=== PATIENT | female | born 1985 | race Caucasian/White ===

== ENCOUNTER 2017-05-03 09:57 | Emergency (ER) | payer BC, OTHER ==
[2017-05-03 10:37] LABS: #Lymphocytes 1.7 thou/uL (1.20-3.40); #Monocytes 0.3 thou/uL (0.11-0.59); #Neutrophils 6.3 thou/uL (1.40-6.50); %Basophils 0.4 % (0.0-1.0); %Eosinophils 0.4 % (0.0-10.0); %Lymphocytes 20.2 % (21.0-51.0); %Monocytes 3.7 % (0.0-10.0); %Neutrophils 75.2 % (42.0-75.0); Hemoglobin 13.2 g/dL (12.0-16.0); Mean Corpuscular HGB CONC 32.7 g/dL (32.0-36.0); Mean Corpuscular Hemoglobin 27.6 pg (27.0-31.0); Mean Corpuscular Volume 84.4 fl (81.0-99.0); Mean Platelet Volume 9.6 fL (7.4-10.4); Platelet Count 164 thou/uL (130-400); RBC Distribution Width 12.5 % (11.5-14.5); Red Blood Cell (RBC) Count 4.79 mill/uL (4.20-5.40); White Blood Cell (WBC) Count 8.3 thou/uL (4.8-10.8)
[2017-05-03 10:39] LABS: BHCG - Serum Negative (NEGATIVE); Pregs Control Background? CLEAR/WHITE (CLR/WHITE); Pregs Control Bar Appear? YES (CONTROL BAR)
--- NOTE | 2017-05-03 10:42 | RAD ---
UPRIGHT PORTABLE CHEST ONE VIEW: History: 31-year-old female with history of chest pain and anxiety for two weeks. Comparison: 10-22-13 FINDINGS: Monitor leads overlie the chest. Dextroscoliosis of the thoracic spine. Heart size is normal. The john gs are clear. IMPRESSION: No acute intrathoracic disease. POS: [facility]
[2017-05-03 10:58] LABS: CKMB 0.6 ng/mL (0-6.6); Troponin I Less than 0.010 ng/mL (< 0.028)
[2017-05-03 11:01] LABS: ALT (SGPT) 11 U/L (8-55); AST (SGOT) 15 U/L (5-34); Albumin 4.7 g/dL (3.5-5.0); Alkaline Phosphatase 61 U/L (40-150); Anion Gap 14 mmol/L (10-20); BUN (Urea Nitrogen) 14 mg/dL (7.0-18.7); Bilirubin, Total 1.1 mg/dL (0.2-1.2); CK (CPK) 57 U/L (29-168); Calc. Creatinine Clearance 0 mL/min (70-130); Calcium 9.5 mg/dL (7.8-10.44); Carbon Dioxide 19 mmol/L (22-29); Chloride 110 mmol/L (98-107); Estimated GFR-MDRD 85; Globulin 2.7 g/dL (2.4-3.5); Glucose 85 mg/dL (70-105); Lipase 35 U/L (8-78); Potassium 3.5 mmol/L (3.5-5.1); Protein, Total 7.4 g/dL (6.0-8.3); Sodium 139 mmol/L (136-145)
[2017-05-03] MEDS ORDERED: Nitroglycerin 2% Ointment 1 INCH/1 GM Packet ONE (11:19)
[2017-05-03] MEDS ORDERED: Nitroglycerin 0.4 MG TAB (25 Tab Bottle) ONE (11:19)
[2017-05-03] MEDS ORDERED: Acetaminophen 500 MG TAB ONE (11:33)
[2017-05-03] MEDS ORDERED: Ketorolac Tromethamine 30 MG/ML VIAL ONE (12:51)
[2017-05-03 13:52] LABS: CKMB 0.5 ng/mL (0-6.6); Troponin I Less than 0.010 ng/mL (< 0.028)
--- NOTE | 2017-06-16 10:42 | EKG ---
Test Reason : Blood Pressure : / mmHG Vent. Rate : 103 BPM Atrial Rate : 103 BPM P-R Int : 146 ms QRS Dur : 084 ms QT Int : 360 ms P-R-T Axes : 076 093 068 degrees QTc Int : 471 ms Sinus tachycardia Rightward axis Borderline ECG Confirmed by NATALYA ENRIQUEZ DO (61), business editor SIMRAN PHAM ([id number]) on 06/16/2017 10:41:41 AM Referred By: Confirmed By:NATALYA ENRIQUEZ DO
--- NOTE | 2017-06-16 10:43 | EKG ---
Test Reason : Blood Pressure : / mmHG Vent. Rate : 088 BPM Atrial Rate : 088 BPM P-R Int : 126 ms QRS Dur : 082 ms QT Int : 362 ms P-R-T Axes : 081 090 073 degrees QTc Int : 438 ms Normal sinus rhythm Rightward axis Borderline ECG No changes Confirmed by NATALYA ENRIQUEZ DO (61), senior stereo compiler team lead SIMRAN PHAM ([id number]) on 06/16/2017 10:43:21 AM Referred By: Confirmed By:NATALYA ENRIQUEZ DO
== END 2017-05-03 14:45 | disposition home or self-care (01) ==
LOC: ERS 09:57
DX: R07.89 Other chest pain (principal); G43.909 Migraine, unspecified, not intractable, without status migrainosus; Z79.899 Other long term (current) drug therapy
CPT/HCPCS: 36415; 71045; 80053; 82553; 83690; 83880; 84484; 84703; 85025; 93005; 96374; J1885

== ENCOUNTER 2018-03-05 10:00 | Outpatient (CLI) | payer BC ==
--- NOTE | 2018-03-05 16:04 | ULT ---
LIMITED RIGHT BREAST ULTRASOUND: 03/05/2018 PROVIDED CLINICAL HISTORY: Followup. COMPARISON: 10/27/2016 TECHNIQUE: Limited sonographic interrogation of the right breast, in the 6 o'clock position, was performed. FINDINGS: There is an oval, circumscribed, hypoechoic mass with smooth margins and no shadowing again seen at t he 6 o'clock position of the right breast, not significantly changed with respect to the prior study. 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 IMPRESSION: BI-RADS category 3-Probably benign findings. One year sonographic followup recommended. POS: OFF
== END 2018-03-05 10:01 | disposition home or self-care (01) ==
LOC: BICMAMMO 10:00
PROVIDERS: ATTEND Obstetrics & Gynecology
DX: N63.10 Unspecified lump in the right breast, unspecified quadrant (principal); Z98.82 Breast implant status
CPT/HCPCS: 77066; G0279

== ENCOUNTER 2019-02-14 17:42 | Outpatient (CLI) | payer BC ==
--- NOTE | 2019-02-14 19:49 | CT ---
EXAM: Abdomen and pelvic CT scan with contrast: HISTORY: Marked right lower quadrant pain. Concern for acute appendicitis 15 weeks by dates COMPARISON: None FINDINGS: The visualized lung bases are clear. Liver: Unremarkable. Gallbladder:Status post cholecystectomy with mild dilatation of the common duct. Pancreas:Unremarkable Spleen:Unremarkable. Adrenal glands:Unremarkable. Kidneys:No renal calculus or acute obstruction. No evidence for solid or cystic renal mass. Slight fullness of the right upper renal collecting syste m compared to the left. No evidence for bowel obstruction. No CT evidence for acute appendicitis. The urinary bladder is unremarkable. Reproductive system: uterus No abscess, adenopathy, or abnormal fluid collection within the abdomen or pelvis. No evidence for acute diverticulitis. IMPRESSION: uterus. Normal-appearing appendix. Slight fullness of the right upper renal collecting syste m. Findings were discussed with Dr. Frank at 7:46 PM CODE CR
== END 2019-02-14 17:43 | disposition home or self-care (01) ==
LOC: CT 17:42
PROVIDERS: ATTEND Advanced Practice Midwife
DX: O99.89 Other specified diseases and conditions complicating pregnancy, childbirth and the puerperium (principal); R10.31 Right lower quadrant pain; N28.89 Other specified disorders of kidney and ureter; Z3A.15 15 weeks gestation of pregnancy
CPT/HCPCS: 74177

== ENCOUNTER 2019-02-25 09:35 | Outpatient (CLI) | payer BC ==
--- NOTE | 2019-02-25 10:17 | ULT ---
LIMITED RIGHT BREAST ULTRASOUND: 02/25/2019 PROVIDED CLINICAL HISTORY: Follow up right breast mass. COMPARISON: Examination performed on 03/05/2018. FINDINGS: There is a circumscribed, smoothly marginated, wider than tall, hypoechoic mass at the 6 o'clock posi tion of the right breast. This appears similar to the prior examination. Interval enlargement of this mass is noted with current measurements of 2.5 x 0.8 x 2.3 cm (as compared to 2.1 x 0.5 x 1.6 cm on the prior examination). IMPRESSION: Interval enlargement of hypoechoic 6 o'clock right breast mass, demonstrating sonographic features ty pical for fibroadenoma. Surgical excisional biopsy, ultrasound guided core biopsy or continued follow up could be considered. BI-RADS category 4 - suspicous. POS: OFF
== END 2019-02-25 09:36 | disposition home or self-care (01) ==
LOC: BICULT 09:35
PROVIDERS: ATTEND Obstetrics & Gynecology
DX: N63.14 Unspecified lump in the right breast, lower inner quadrant (principal)

== ENCOUNTER 2019-07-15 21:44 | Day surgery (SDC) | payer BC ==
[2019-07-15 22:23] VITALS: BP 123/82; TEMP 98.6; BMI 29.2
[2019-07-15] MEDS ORDERED: hydrALAZINE 20 MG/ML VIAL SLOW IVP PRN (23:29)
--- NOTE | 2019-07-16 00:06 | PRG ---
DATE OF SERVICE: PRIMARY OB: Dr. Joey Zepeda. CHIEF COMPLAINT: Abdominal pain. HISTORY OF PRESENT ILLNESS: Patient is a 34-year-old, G3, P2, female, with an intrauterine at 37 weeks and 5 days, presenting to Labor and Delivery with complaints of uterine contractions that she reports are occurring about every 15 minutes, lasting about 30 to 40 seconds. She currently is living about 2 hours from here in [place] and came in for evaluation with concerns that she may go into labor. Patient has a history of 1 prior for breech and a previous vaginal delivery that she reports is traumatic. Patient is scheduled for repeat . Patient denies any leakage of fluid or vaginal bleeding. She denies any fever, headache, cough, chest pain, shortness of breath, nausea, vomiting, diarrhea, constipation, hip problems, knee problems, or muscle weakness. PAST MEDICAL HISTORY: Migraines and anemia. PAST SURGICAL HISTORY: Previous x1 and a D and C. ALLERGIES: NO KNOWN DRUG ALLERGIES. MEDICATIONS: vitamins. SOCIAL HISTORY: Denies drug, alcohol, or tobacco use. OB LABS: Unavailable at time of dictation. MEDICATION: 1. Iron. 2. vitamins. REVIEW OF SYSTEMS: Per HPI. PHYSICAL EXAMINATION: VITAL SIGNS: Blood pressure 123/82, heart rate of 102, temperature 98.6, respiratory rate of 16, and saturating 99% on room air. GENERAL: She appears to be in no acute distress. She is alert, oriented, cooperative, and pleasant to interact with. HEAD: Normocephalic and atraumatic. LUNGS: Clear to auscultation bilaterally. HEART: Has a regular rate and rhythm. ABDOMEN: Gravid, soft, and nontender. EXTREMITIES: Nontender and nonedematous. CERVICAL EXAM: Per nursing staff is closed, thick, and high. LABORATORY DATA: heart tracing shows a baseline in the 130s with moderate long-term variability, positive 15 x 15 accelerations. Tocometer showing some irritability, difficult to get a frequency of contractions. ASSESSMENT AND PLAN: Patient is a 34-year-old multiparous female with an intrauterine at 37 weeks and 5 days, having contractions, but no evidence of labor. Patient is being discharged home as she has a place to stay here locally and will be here overnight. She has been given drug and alcohol counselor to return as her contractions come closer together, about every 6 to 7 minutes and lasting a minute or longer. Fetus has a category 1 tracing and reactive NST. Job ID: [id number]
== END 2019-07-15 23:32 | disposition home or self-care (01) ==
LOC: L&D/OP 21:44
PROVIDERS: ATTEND Obstetrics & Gynecology
DX: O47.1 False labor at or after 37 completed weeks of gestation (principal); O99.89 Other specified diseases and conditions complicating pregnancy, childbirth and the puerperium; R10.9 Unspecified abdominal pain; O99.013 Anemia complicating pregnancy, third trimester; D64.9 Anemia, unspecified; O34.219 Maternal care for unspecified type scar from previous cesarean delivery; Z3A.37 37 weeks gestation of pregnancy; Z79.899 Other long term (current) drug therapy
CPT/HCPCS: 99282

== ENCOUNTER 2019-07-21 12:45 | Inpatient (IN) | payer BC ==
[2019-07-21] MEDS ORDERED: hydrALAZINE 20 MG/ML VIAL SLOW IVP PRN ×3 (13:20→21:23)
[2019-07-21 13:26] VITALS: BMI 29.8
[2019-07-21] MEDS ORDERED: Acetaminophen 500 MG TAB PO PRN (15:12)
[2019-07-21] MEDS ORDERED: Promethazine HCl 25 MG/ML VIAL IM PRN ×2 (15:12→19:13)
[2019-07-21] MEDS ORDERED: Ondansetron PF 4 MG/2 ML Vial IVP PRN ×3 (15:12→21:23)
[2019-07-21] MEDS ORDERED: Butorphanol Tartrate 1 MG/ML VIAL SLOW IVP PRN (15:12)
[2019-07-21] MEDS ORDERED: Lactated Ringer's 1,000 ML IV SCH (15:15)
[2019-07-21] MEDS ORDERED: CEFAZOLIN 2 GM in Premix Bag 1 BAG IVPB SCH (15:15)
[2019-07-21] MEDS ORDERED: Bicitra 30 ML UDCUP PO SCH (15:15)
--- NOTE | 2019-07-21 15:21 | PDOC.LDHP ---
Labor and Delivery H&P Chief complaint: contractions HPI: 34yo at 37w4d by LMP here with painful ctx q 5-7min since last night. No LOF VB. Good FM. Pain 8-10/10 scale. Current gestational age (weeks): 37 Due date: 08/07/19 Dating criteria: last menstrual period Grav: 4 Para: 2 Current complications: none Abnormal US findings: No Past Medical History: cervical dysplasia, hx of blood transfusion after last delivery, anemia Current medications: pre- vitamins, iron Previous surgical history: low tranverse CS, dilation and curettage, other (LEEP , Breast aug) Allergies/Adverse Reactions: Allergies Allergy/AdvReac Type Severity Reaction Status Date / Time No Known Allergies Allergy Verified 07/21/19 13:11 Social history: none - Physical Exam Vital signs reviewed and normal: yes General: breathing through contractions Heart: RRR Lungs: CTAB Abdomen: gravid Extremeties: no edema FHT: category 1 [place] contractions every: 5min - Vaginal Exam cm dilated: 1 Effacement: 75% Station: -2 - OB Labs Blood type: B RH: positive Antibody Screen: negative HIV: negative RPR: negative HEPSAg: negative 1 hour GCT: positive 3 hour GTT: neg GBS: negative Urine drug screen: negative Rubella: immune - Assessment L&D Assessment: term patient in labor - Plan Plan: admit to L&D, to OR for section, informed consent obtained, anesthesia consult for pain management
[2019-07-21 16:06] LABS: Hemoglobin 9.8 g/dL (12.0-16.0); Mean Corpuscular HGB CONC 30.9 g/dL (32.0-36.0); Mean Corpuscular Hemoglobin 21.5 pg (27.0-31.0); Mean Corpuscular Volume 69.7 fL (78.0-98.0); Mean Platelet Volume 7.4 fL (7.4-10.4); Platelet Count 205 thou/uL (130-400); RBC Distribution Width 18.4 % (11.5-14.5); Red Blood Cell (RBC) Count 4.56 mill/uL (4.20-5.40); White Blood Cell (WBC) Count 8.1 thou/uL (4.8-10.8)
[2019-07-21 16:38] LABS: HBSAg Index 0.17 S/CO (0-0.99); Hep B Surf Ag Non-Reactive S/CO (NonReactive); Syphilis Antibody Nonreactive (Nonreactive); Syphilis Antibody Index 0.02 S/CO (<1.00 Non-Reactive)
[2019-07-21] MEDS ORDERED: Oxytocin 10 UNITS/ML VIAL ONE (17:55)
[2019-07-21] MEDS ORDERED: MORPHINE 5 MG/10 ML PF VIAL ONE (17:55)
[2019-07-21] MEDS ORDERED: PHENYLEPHRINE-NS 100 MCG/ML 10 ML SYRINGE ONE (17:55)
[2019-07-21] MEDS ORDERED: Methylergonovine 0.2 MG/ML VIAL ONE (18:44)
[2019-07-21] MEDS ORDERED: Promethazine HCl 25 MG SUPP PR PRN (19:13)
[2019-07-21] MEDS ORDERED: Meperidine HCl/PF 25 MG/ML VIAL SLOW IVP PRN (19:13)
[2019-07-21] MEDS ORDERED: HYDROmorphone 2 MG/ML VIAL SLOW IVP PRN (19:13)
[2019-07-21] MEDS ORDERED: Ondansetron HCl/PF 4 MG/2 ML Vial IVP PRN (19:13)
[2019-07-21] MEDS ORDERED: L&D-Morphine 4 MG/ML VIAL SLOW IVP PRN (19:13)
[2019-07-21] MEDS ORDERED: Naloxone HCl 0.4 mg/ml Vial IVP PRN ×2 (19:13)
[2019-07-21] MEDS ORDERED: Naloxone HCl 0.4 mg/ml Vial IV PRN (19:13)
[2019-07-21] MEDS ORDERED: Ketorolac Tromethamine 30 MG/ML VIAL IVP SCH (19:15)
[2019-07-21] MEDS ORDERED: Communication Order-Pharmacy FS SCH (19:15)
[2019-07-21] MEDS ORDERED: NS / Oxytocin 40 units/1000ml 1,000 ML ONE (19:20)
[2019-07-21] MEDS ORDERED: Ketorolac Tromethamine 30 MG/ML VIAL ONE (20:01)
[2019-07-21] MEDS: Ketorolac Tromethamine 30 MG/ML VIAL IVP PRN (20:05)
[2019-07-21] MEDS: Ferrous Sulfate 325 MG TAB PO SCH (21:00)
[2019-07-21] MEDS ORDERED: Lanolin Ointment 7 GM TUBE TOP PRN (21:23)
[2019-07-21] MEDS ORDERED: Zolpidem Tartrate 5 MG TAB PO PRN (21:23)
[2019-07-21] MEDS ORDERED: Bisacodyl 10 MG SUPP PR PRN (21:23)
[2019-07-21] MEDS ORDERED: HYDROcodone/Acetaminophen 5/325 mg Tablet PO PRN (21:23)
[2019-07-21] MEDS ORDERED: NS / Oxytocin 40 units/1000ml 1,000 ML IV SCH (21:23)
[2019-07-21] MEDS ORDERED: Adacel (T-DAP) 0.5 ML SYRINGE IM ONE (21:23)
[2019-07-21] MEDS ORDERED: diphenhydrAMINE 50 MG/ML VIAL ONE (21:28)
[2019-07-21] MEDS: diphenhydrAMINE 50 MG/ML VIAL IVP PRN (21:31)
[2019-07-21] MEDS: Ibuprofen 800 MG TAB PO SCH (22:00)
--- NOTE | 2019-07-22 00:57 | OP ---
DATE OF PROCEDURE: 07/21/2019 PREOPERATIVE DIAGNOSES: 1. G4, P2-0-1-2 at 37 weeks and 4 days. 2. Previous section. Declines trial of labor. 3. Labor. POSTOPERATIVE DIAGNOSES: 1. G4, P2-0-1-2 at 37 weeks and 4 days. 2. Previous section. Declines trial of labor. 3. Labor. PROCEDURE: Repeat low transverse section. IN SERVICE COORDINATOR: Micheline Tomlinson MD. COMPLICATIONS: None. ESTIMATED BLOOD LOSS: 750 mL. QUANTITATIVE BLOOD LOSS: Pending. ANESTHESIA: Spinal per Dr. Soni. OPERATIVE FINDINGS: 1. Low-transverse hysterotomy without extension. 2. Dense adhesions between the fascia, peritoneum, and anterior aspect of the uterus. 3. Vigorous male , Apgars 8 and 8, weight 7 pounds 14 ounces to [place] [facility]. 4. Uterine atony noted immediately after delivery, resolved with Methergine IM x1 and Pitocin IV. PROCEDURE DETAILS: The patient was taken back to the OR with IV fluids running. Once she was in the OR, spinal anesthesia was obtained. The patient was placed in dorsal supine position with a left lateral tilt. Marlow catheter was placed using sterile technique, and the abdomen was prepped and draped in a normal fashion for section. 2 g of Ancef was administered through the IV. The surgeons were gowned and gloved. Anesthesia was tested and found to be adequate. A Pfannenstiel skin incision was made with a scalpel. The skin incision was carried down through subcutaneous tissue to the fascia. Once the fascia was reached, it was incised in the midline and extended superolaterally using curved Peterson scissors. Jeremy clamps were then placed at the superior border of the fascia which was sharply and bluntly dissected off the rectus abdominis muscles in a cephalad direction. In similar fashion, the Jeremy clamps were placed at the inferior border of the rectus fascia which was dissected down towards the level of the pubic symphysis. The rectus muscles were tented off the abdomen with an Allis clamp and in the midline with a scalpel. Once the peritoneum was entered, it was dissected superiorly through dense adhesions between the rectus abdominis muscles superiorly to allow adequate space for delivery of the infant. In similar fashion, the Peterson scissors were used to dissect the rectus muscles and peritoneum down towards the pubic symphysis. A dense adhesion was noted from the anterior abdominal wall, peritoneum, and uterus. This adhesion was transected using cautery. After this adhesion was removed, it was felt that there was adequate space for the delivery of the infant, and there were no other adhesions noted. An Olaf retractor was placed into the abdomen for retraction, visualization, and protection of the wound. A bladder flap was created, and the bladder was dissected away from the planned hysterotomy site. A low-transverse hysterotomy was made with the scalpel which was stretched using the Salinas maneuver. Amniotomy was performed with clear fluid noted. An attempt was made to deliver the 's head with gentle fundal pressure with the Olaf retractor in place; however, the incision was not easily accommodating the 's head. The Olaf retractor was then removed, and an approximate 1 cm segment of rectus muscle was incised on the patient's left side. The was then delivered easily through the abdominal incision. The nose and mouth were suctioned. The cord was doubly clamped and cut, and the infant was handed off to special care nurses in attendance. A bladder blade was then placed inferiorly. The uterus was exteriorized, massaged to firm, and cleared of clot and debris. The uterus was examined and immediately an approximate 2 cm x 2 cm area with a small amount of bleeding was noted where the adhesive disease was dissected away prior to delivery of the infant. Pressure with a clean sponge was placed over this defect, and the hysterotomy was closed. The fundus was noted to have atony at the start of the closure of the hysterotomy and a dose of Methergine was ordered and given. The hysterotomy was closed with a running lock suture of Monocryl suture. After the hysterotomy was closed, the uterus was noted to be firm and attention was turned to oversewing the serosa at the defect of the anterior aspect of the uterus. The Monocryl suture in a running locked fashion was used to oversew this approximate 2 cm length denuded area at the site of dissection from the adhesive disease. After this was oversewn, it was noted to be hemostatic. The uterus was returned to the abdominal cavity. The hysterotomy paracolic gutters were copiously irrigated and suctioned dry. The hysterotomy as well as the site of the serosal repair were inspected with no additional bleeding noted. The instruments were all removed from the abdomen, and the counts were correct. The rectus muscle was identified, and no areas of bleeding were noted. At the peritoneal and fascial edge where the adhesive band was dissected, a small area of bleeding had been noted and was oversewn with plain gut suture. Cautery was also used for hemostasis at this peritoneal edge. This area was closely inspected, and with no bleeding noted, attention was turned to closing the fascia layer. The fascia was closed from corner to corner with PDS suture in a running fashion with the suture ends tied together in the midline. The subcutaneous tissue was then irrigated and dried. Any small areas of bleeding were controlled with cauterization. Plain gut suture was used to reapproximate the subcutaneous layer and subcuticular layer was closed with 4-0 Monocryl and dressed with Dermabond dressing. The uterine fundus was noted to be firm at the end of the section. The patient tolerated the procedure well and was transferred to recovery room in good condition. Job ID: [id number] [facility]
[2019-07-22] MEDS: Ketorolac Tromethamine 30 MG/ML VIAL IVP PRN (01:07)
[2019-07-22] MEDS: diphenhydrAMINE 50 MG/ML VIAL IVP PRN (01:08)
[2019-07-22] MEDS: diphenhydrAMINE 25 MG CAP PO PRN ×5 (05:42→21:38)
[2019-07-22 07:03] LABS: Hemoglobin 8.8 g/dL (12.0-16.0); Mean Corpuscular HGB CONC 29.9 g/dL (32.0-36.0); Mean Corpuscular Volume 70.4 fL (78.0-98.0); Mean Platelet Volume 7.8 fL (7.4-10.4); Platelet Count 173 thou/uL (130-400); RBC Distribution Width 18.5 % (11.5-14.5); White Blood Cell (WBC) Count 8.3 thou/uL (4.8-10.8)
[2019-07-22] MEDS: HYDROcodone/Acetaminophen 5/325 mg Tablet PO PRN ×4 (07:25→20:32)
[2019-07-22] MEDS: Ibuprofen 800 MG TAB PO SCH ×3 (07:44→17:31)
[2019-07-22] MEDS: Ferrous Sulfate 325 MG TAB PO SCH ×2 (09:25→21:39)
[2019-07-22] MEDS: Prenatal Vitamin 1 TAB PO SCH (09:25)
[2019-07-22] MEDS: Simethicone Chewable 80 MG TAB PO PRN ×3 (13:42→21:38)
--- NOTE | 2019-07-22 15:10 | PDOC.PP ---
Post Progress Note Post Day #: 1 Subjective: doing well, no concerns, mild discomfort, tolerating regular diet, baby in NICU on CPAP PO intake tolerated: yes Flatus: yes Ambulation: yes Vital Signs (12 hours) Temp Pulse Resp BP Pulse Ox 07/22/19 11:30 98.1 F 85 16 105/63 07/22/19 08:30 98.3 F 86 16 121/70 98 07/22/19 05:15 97.6 F 80 18 117/69 Weight Weight 185 lb - Physical Examination General: NAD Respiratory: non-labored breathing Abdominal: no distention Skin: CS incision dry & intact Psychiatric: A&Ox3, normal affect Result Diagrams: 07/22/19 05:40 Additional Labs: Post Labs Blood Type B POSITIVE 07/21/19 16:05 Hep Bs Antigen Non-Reactive S/CO (NonReactive) 07/21/19 15:48 (1) 37 weeks gestation of Code(s): Z3A.37 - 37 WEEKS GESTATION OF Status: Acute (2) Previous section Code(s): Z98.891 - HISTORY OF UTERINE SCAR FROM PREVIOUS SURGERY Status: Acute (3) Anemia affecting Code(s): O99.019 - ANEMIA COMPLICATING , UNSPECIFIED TRIMESTER Status : Acute - Assessment/Plan POD1 doing well, pain controlled oral meds, ambulating and post op goals met. Iron for anemia planned.
[2019-07-23] MEDS: diphenhydrAMINE 25 MG CAP PO PRN (01:34)
[2019-07-23] MEDS: HYDROcodone/Acetaminophen 5/325 mg Tablet PO PRN ×4 (01:35→20:04)
[2019-07-23] MEDS: Simethicone Chewable 80 MG TAB PO PRN ×2 (01:35→05:47)
[2019-07-23] MEDS: Ibuprofen 800 MG TAB PO SCH ×3 (01:35→18:05)
[2019-07-23] MEDS: Prenatal Vitamin 1 TAB PO SCH ×2 (08:08→08:09)
[2019-07-23] MEDS: Ferrous Sulfate 325 MG TAB PO SCH ×2 (08:08→20:04)
--- NOTE | 2019-07-23 08:35 | PDOC.PP ---
Post Progress Note Post Day #: 2 Subjective: doing well, pain controlled w oral meds, anna regular diet, ambulating well to NICU PO intake tolerated: yes Flatus: yes Ambulation: yes Vital Signs (12 hours) Temp Pulse Resp BP Pulse Ox 07/23/19 08:02 98.0 F 96 20 128/77 99 07/23/19 05:40 98.1 F 82 15 115/57 L 07/23/19 00:25 97.7 F 79 15 118/57 L Weight Weight 185 lb - Physical Examination General: NAD Respiratory: non-labored breathing Psychiatric: A&Ox3, normal affect Result Diagrams: 07/22/19 05:40 Additional Labs: Post Labs Blood Type B POSITIVE 07/21/19 16:05 Hep Bs Antigen Non-Reactive S/CO (NonReactive) 07/21/19 15:48 (1) 37 weeks gestation of Code(s): Z3A.37 - 37 WEEKS GESTATION OF Status: Acute (2) Previous section Code(s): Z98.891 - HISTORY OF UTERINE SCAR FROM PREVIOUS SURGERY Status: Acute (3) Anemia affecting Code(s): O99.019 - ANEMIA COMPLICATING , UNSPECIFIED TRIMESTER Status : Acute - Assessment/Plan POD2 doing well, baby in NICU on CPAP, pt is hopeful that baby will be weaned off over the next few days. Pt is considering Humphrey Junior vs. Jesus and B for the upcoming discharge tomorrow or . Pain medication use and PP iron use reviewed.
[2019-07-24] MEDS: Ibuprofen 800 MG TAB PO SCH ×3 (00:59→10:57)
[2019-07-24] MEDS: HYDROcodone/Acetaminophen 5/325 mg Tablet PO PRN ×3 (06:24→16:33)
--- NOTE | 2019-07-24 08:23 | PDOC.PP ---
Post Progress Note Post Day #: 3 Subjective: doing well, minimal burning in the corner of incision, normal lochia PO intake tolerated: yes Flatus: yes Ambulation: yes Vital Signs (12 hours) Temp Pulse Resp BP Pulse Ox 07/23/19 22:00 97.6 F 75 15 129/76 98 Weight Weight 185 lb - Physical Examination General: NAD Respiratory: non-labored breathing Abdominal: no distention Skin: no rash Neurological: no gross focal deficits Psychiatric: A&Ox3, normal affect Result Diagrams: 07/22/19 05:40 Additional Labs: Post Labs Blood Type B POSITIVE 07/21/19 16:05 Hep Bs Antigen Non-Reactive S/CO (NonReactive) 07/21/19 15:48 (1) 37 weeks gestation of Code(s): Z3A.37 - 37 WEEKS GESTATION OF Status: Acute (2) Previous section Code(s): Z98.891 - HISTORY OF UTERINE SCAR FROM PREVIOUS SURGERY Status: Acute (3) Anemia affecting Code(s): O99.019 - ANEMIA COMPLICATING , UNSPECIFIED TRIMESTER Status : Acute - Assessment/Plan POD3 doing well sp RCS for labor @ 37+ weeks. Baby of IV and CPAP. Plan for B and B today while baby likely stays in nursery one more day.
[2019-07-24] MEDS: Ferrous Sulfate 325 MG TAB PO SCH (10:53)
[2019-07-24] MEDS: Prenatal Vitamin 1 TAB PO SCH (10:54)
[2019-07-24 11:39] VITALS: BP 122/64; TEMP 97.7
--- NOTE | 2019-07-25 07:07 | PQF ---
Eastepp Tuyetleighann Reyes JENNA BAXTER [id number] CLINICAL DOCUMENTATION CLARIFICATION FORM: POST DISCHARGE Addendum to original discharge summary date: ____ Late entry note date: __ DATE: 07/25/2019 ATTN: DuaneJenna Please exercise your independent, professional judgment in responding to the clarification form. Clinical indicators are provided on the bottom of this form for your review Please check appropriate box(s): [ ] Acute blood loss anemia [ ] Post-op anemia related to acute blood loss [ x ] Other diagnosis pregnancy associated anemia [ ] Unable to determine In addition, please specify: Present on Admission (POA): [ x ] Yes [ ] No [ ] Unable to determine For continuity of documentation, please document condition throughout progress notes and discharge summary. Thank You. CLINICAL INDICATORS - SIGNS / SYMPTOMS / LABS HP 07/18 "Anemia" OP Note 07/20 "EBL:750ml" Labs RBC: 07/20=4.56 07/21=4.20 Labs hgb: 07/20=9.8 07/21=8.8 Labs hct: 07/20=31.8 07/21=29.6 Vital signs BP: 07/2229=923/57 RISK FACTORS HP 07/18-37 weeks gestation HP 07/18-s/p CS delivery HP 07/18-dense adhesion HP 07/18-Uterine atony TREATMENTS: Laboratory Monitoring-Collected 07/20MAY 28-IVF MAY 28-Ferrous sulfate 325mg oral (This form is maintained as a part of the permanent medical record) 2014 [employer] All Rights Reserved [email or web address] [phone] [email or web address]
--- NOTE | 2019-07-25 07:11 | PQF ---
Eastepp Tuyet Leyvadanna JENNA ZEPEDA DO [id number] CLINICAL DOCUMENTATION CLARIFICATION FORM: POST DISCHARGE Addendum to original discharge summary date: ____ Late entry note date: __ DATE: 07/25/2019 ATTN:Jenna Zepeda Please exercise your independent, professional judgment in responding to the clarification form. Clinical indicators are provided on the bottom of this form for your review Please check appropriate box(s): In the description of the operative procedure a bleeding in the adhesive disease was noted by the surgeon. If possible would you please further clarify if this was: [x ] Incidental occurrence inherent in the surgical procedure [ ] Complication of the procedure [ ] Other [ ] Unable to determine For continuity of documentation, please document condition throughout progress notes and discharge summary. Thank You. CLINICAL INDICATORS - SIGNS / SYMPTOMS / LABS OP Note 07/20 "an approximate 2cm x3 cm area with a small amount of bleeding was noted where the adhesive disease was dissected away" OP Note 07/20 "At the peritoneal and fascia edge where the adhesive band was dissected, a small area of bleeding has been noted and oversewn with plain gut suture" RISK FACTORS HP 07/18-37 weeks gestation HP 07/18-s/p CS delivery HP 07/18-dense adhesion HP 07/18-Uterine atony TREATMENTS: MAY 28-IVF OP Note 07/20-Suture of bleeding (This form is maintained as a part of the permanent medical record) 2014 [employer] All Rights Reserved [email or web address]
== END 2019-07-24 16:30 | disposition home or self-care (01) | DRG 788 ==
LOC: L&D/OP 12:45 → L&D 16:26 → 3SW 22:33
PROVIDERS: ADMIT Obstetrics & Gynecology; ATTEND Obstetrics & Gynecology
PROC: 10D00Z1 Extraction of Products of Conception, Low, Open Approach (ICD-10-PCS; principal; 2019-07-21)
PROC: 0DNW0ZZ Release Peritoneum, Open Approach (ICD-10-PCS; 2019-07-21)
PROC: 3E033VJ Introduction of Other Hormone into Peripheral Vein, Percutaneous Approach (ICD-10-PCS; 2019-07-21)
PROC: 3E023GC Introduction of Other Therapeutic Substance into Muscle, Percutaneous Approach (ICD-10-PCS; 2019-07-21)
DX: O34.211 Maternal care for low transverse scar from previous cesarean delivery (principal); Z3A.37 37 weeks gestation of pregnancy; Z37.0 Single live birth; Z90.49 Acquired absence of other specified parts of digestive tract; O99.02 Anemia complicating childbirth; D64.9 Anemia, unspecified; O99.89 Other specified diseases and conditions complicating pregnancy, childbirth and the puerperium; N87.9 Dysplasia of cervix uteri, unspecified; O75.89 Other specified complications of labor and delivery; O99.62 Diseases of the digestive system complicating childbirth; K66.0 Peritoneal adhesions (postprocedural) (postinfection)
CPT/HCPCS: 36415; 51702; 85027; 86780; 86850; 86900; 86901; 87081; 87340; 99285; J0690; J1200; J1885; J2210; J2274; J2590; Q0163